=== PATIENT | female | born 1945 | race Caucasian/White ===

== ENCOUNTER 2017-03-30 12:25 | Emergency (ER) | payer MEDICARE, OTHER ==
[2017-03-30 12:33] VITALS: BP 121/80
[2017-03-30] MEDS ORDERED: HYDROcod/ACETAM 5/325 MG TABLET PO STA (12:41)
--- NOTE | 2017-03-30 12:45 | ED Physician Documentation ---
PD HPI UPPER EXT INJURY - Stated complaint Stated Complaint: R SHOULDER INJ - Chief complaint Chief Complaint: Ext Problem - History obtained from History obtained from: Patient - History of Present Illness Location: Right, Shoulder Type of injury: Other (Her shoulder was bothering her a little bit, across the back and the top of the shoulder radiating down the arm for a couple months. 3 days ago she had a minor fall while camping it all got much worse and now she is losing sleep because of the pain. She has not had trouble with that shoulder before that. But she does have known arthritis, she has had both hips replaced.) Review of Systems Constitutional: denies: Fever, Chills GI: denies: Abdominal Pain, Nausea, Vomiting PD PAST MEDICAL HISTORY - Past Medical History Past Medical History: Yes Endocrine/Autoimmune: Type 2 diabetes ("borderline") - Past Surgical History Past Surgical History: Yes Ortho: Hip replacement (bilateral) - Present Medications Home Medications: Ambulatory Orders Medication Instructions Recorded Confirmed HYDROcod/ACETAM 5/325 [Carson 5/325] 1 - 2 ea PO Q6H PRN #15 tablet 03/30/17 - Allergies Allergies/Adverse Reactions: Allergies Allergy/AdvReac Type Severity Reaction Status Date / Time No Known Drug Allergies Allergy Verified 03/30/17 12:33 PD ED PE NORMAL - Vitals Vital signs reviewed: Yes - General General: Alert and oriented X 3, No acute distress - Extremities Extremities: Other (Able to abduct to about 90 in the right shoulder. Mildly tender across the top and the glenohumeral joint without clavicular tenderness. She has pain with supraspinatus testing but is able to resist. Normal chefs strength, thumb extension, interossei strength, radial pulses, flexion and extension at the wrist on the right.) - Neuro Neuro: Alert and oriented X 3, Normal speech - Psych Psych: Normal mood, Normal affect Results - Vitals Vitals: Vital Signs - 24 hr 03/30/17 12:31 Temperature 36.1 C L Heart Rate 86 Respiratory 20 Rate Blood Pressure 121/80 O2 Saturation 98 Oxygen O2 Source Room air - Rads (name of study) R shoulder 3v Radiology: EMP read contemporaneously (Degenerative disease of the glenohumeral and AC joints without acute fracture.) PD MEDICAL DECISION MAKING - ED course ED course: She has acute on subacute right shoulder pain that seems muscular/arthritic. She is placed in a sling for comfort but advised on doing exercises several times a day to maintain range of motion. She is to continue the Aleve and we will add some hydrocodone and she is to follow-up with her orthopedist. Departure - Departure Disposition: 01 Home, Self Care Clinical Impression: Right shoulder pain Qualifiers: Chronicity: acute Qualified Code(s): M25.511 - Pain in right shoulder Condition: Good Record reviewed to determine appropriate education?: Yes Instructions: Arthritis Acromioclavicular Follow-Up: Nichole Richter MD [Provider Admit Priv/Credential] - Prescriptions: HYDROcod/ACETAM 5/325 [Carson 5/325] 1 - 2 ea PO Q6H PRN #15 tablet PRN Reason: Pain Comments: Call your doctor to arrange a follow-up appointment, make the next available appointment. In the interim, return anytime if worse or if new symptoms develop. Do not drink or drive while taking narcotic pain medication. Note that many narcotic pain relievers also contain Tylenol/acetaminophen. Please ensure that your total dose of acetaminophen from all sources does not exceed 3 g (3000 mg) per day. You may get constipated while on this medication. Take a stool softener such as Colace twice a day while you are on it. Also add an ehmg-amy-yqljunm laxative such as senna or MiraLAX on any day that you do not have a bowel movement. If you received a narcotic pain medication or sedative while in the emergency department, do not drive for the next 24 hours.
[2017-03-30] MEDS ORDERED: HYDROcod/ACETAM 5/325 MG TABLET ONE (13:02)
--- NOTE | 2017-03-30 13:18 | XRAY Preliminary Report ---
Exam: XR SHOULDER 3 VIEW RT IMPRESSION: 1. No definite acute abnormality. 2. Kfyd-kf-cyejzceu acromioclavicular and severe glenohumeral joint degenerative disease. [facility] SITE ID: [id number]
--- NOTE | 2017-03-30 13:20 | XRAY Report ---
EXAM: RIGHT SHOULDER RADIOGRAPHY EXAM DATE: 03/30/2017 12:59 PM. CLINICAL HISTORY: Shoulder inj. pain after fall 3 days ago. COMPARISON: None. TECHNIQUE: 3 views. FINDINGS: Bones: Normal. No fracture or bone lesion. Joints: The glenohumeral and acromioclavicular joints are normally aligned. Mild to moderate acromioc lavicular joint degenerative disease. Substantial glenohumeral joint degenerative disease with exuber ant humeral head inferior spurring. Soft tissues: The visualized hemithorax is unremarkable. No soft tissue swelling. IMPRESSION: 1. No definite acute abnormality. 2. Uiaa-[id number] acromioclavicular and severe glenohumeral joint degenerative disease. [facility] Referring Provider Line: [phone] SITE ID: [id number]
== END 2017-03-30 13:58 | disposition home or self-care (01) ==
LOC: ED 12:25
DX: M25.511 Pain in right shoulder (principal); W01.0XXA Fall on same level from slipping, tripping and stumbling without subsequent striking against object, initial encounter; Y92.833 Campsite as the place of occurrence of the external cause; E11.9 Type 2 diabetes mellitus without complications
CPT/HCPCS: 73030; 99282; 99283; A9270

== ENCOUNTER 2020-03-25 09:21 | Outpatient (CLI) | payer MEDICARE ==
--- NOTE | 2020-03-25 16:23 | Ultrasound Report ---
PROCEDURE: Abdomen Limited INDICATIONS: RUQ PAIN TECHNIQUE: Real-time focused scanning was performed of the abdomen, with image documentation. COMPARISON: None FINDINGS: The liver demonstrates prominent size. The liver demonstrates increased echogenicity, whic h limits ultrasound sensitivity for detection of masses. Focal fatty sparing can be seen adjacent to the gallbladder. Multiple are seen, including a 2.6 cm gallstone. The gallbladder wall does not appear thickened. Ther e is no specific pericholecystic fluid. The sonographic High's sign is negative. No biliary ductal dilatation is seen. The common bile duct measures 6 mm. The visualized pancreas is unremarkable. The visualized right kidney is within normal limits. IVC is patent. This study is limited by body habitus. The study is further limited by bowel gas. IMPRESSION: Gallstones can be seen within the gallbladder, without additional sonographic signs of cholecystitis. No biliary dilatation is seen. Fatty liver infiltration. Reviewed by: Cooper Magallanes MD on 03/25/2020 3:22 PM FROYLAN Approved by: Cooper Magallanes MD on 03/25/2020 3:22 PM FROYLAN Station ID: [id number]
== END 2020-03-25 09:22 | disposition home or self-care (01) ==
LOC: DI 09:21
PROVIDERS: ATTEND Internal Medicine
DX: R10.11 Right upper quadrant pain (principal); K80.20 Calculus of gallbladder without cholecystitis without obstruction; K76.0 Fatty (change of) liver, not elsewhere classified
CPT/HCPCS: 76705

== ENCOUNTER 2020-04-26 15:02 | Outpatient (CLI) | payer MEDICARE, OTHER | END 2020-04-26 15:03 | disposition home or self-care (01) | LOC: COV 15:02 | PROVIDERS: ATTEND Surgery | DX: Z01.812 Encounter for preprocedural laboratory examination (principal); K81.1 Chronic cholecystitis; Z20.828 Contact with and (suspected) exposure to other viral communicable diseases ==

== ENCOUNTER 2020-05-02 12:01 | Day surgery (SDC) | payer MEDICARE, OTHER ==
[~2020-05-02 12:01] MED LIST: CEFAZOLIN SODIUM IN 0.9 % NACL 2 GM/100 ML BAG IV ONE
[2020-05-02] MEDS ORDERED: LACTATED RINGERS 1,000 ML IV ONE (12:08)
[2020-05-02 12:20] VITALS: BP 168/91
--- NOTE | 2020-05-02 12:48 | ANESTHESIA ---
Pre-Anesthesia VS, & Labs - Diagnosis chronic cholecystitis - Procedure Lap Jessika Vital Signs: Temp Pulse Resp BP Pulse Ox 36.5 C 67 18 168/91 H 96 05/02/20 12:08 05/02/20 12:08 05/02/20 12:08 05/02/20 12:08 05/02/20 12:08 Height: 5 ft 6 in Weight (kg): 92.6 kg Body Mass Index: 32.9 BMI Classification: Obese - NPO >8 hours - Is Patient ?: No Home Medications and Allergies Home Medications: Ambulatory Orders Ascorbic Acid [Vitamin C] 500 mg PO DAILY 04/21/20 Cholecalciferol (Vitamin D3) [Vitamin D3] 3,000 unit PO DAILY 04/21/20 Lansoprazole [Prevacid] 15 mg PO DAILY 04/21/20 Levothyroxine [Synthroid] 100 mcg PO DAILY 04/21/20 Sertraline HCl [Zoloft] 100 mg PO DAILY 04/21/20 Simvastatin [Zocor] 20 mg PO DAILY 04/21/20 amLODIPine [Norvasc] 10 mg PO DAILY 04/21/20 Ascorbic Acid [Vitamin C] 500 mg PO DAILY 04/21/20 Cholecalciferol (Vitamin D3) [Vitamin D3] 3,000 unit PO DAILY 04/21/20 Lansoprazole [Prevacid] 15 mg PO DAILY 04/21/20 Levothyroxine [Synthroid] 100 mcg PO DAILY 04/21/20 Sertraline HCl [Zoloft] 100 mg PO DAILY 04/21/20 Simvastatin [Zocor] 20 mg PO DAILY 04/21/20 amLODIPine [Norvasc] 10 mg PO DAILY 04/21/20 Allergies/Adverse Reactions: Allergies Allergy/AdvReac Type Severity Reaction Status Date / Time No Known Drug Allergies Allergy Verified 03/30/17 12:33 Anes History & Medical History - Anesthetic History Anesthesia Complications: reports: No previous complications - Medical History Cardiovascular: reports: Hypertension, High cholesterol, Murmur (Patient has systolic murmur), Other (Patient reports dizziness when standing and neck pain that radiates to shoulders. Patient reports poor exercise tolerance.) Pulmonary: reports: Sleep apnea (snores) Gastrointestinal: reports: GERD (controlled with medication), Hiatal hernia Urinary: reports: None Neuro: reports: None Musculoskeletal: reports: Osteoarthritis Endocrine/Autoimmune: reports: HyPOthyroidism Blood Disorders: reports: None Skin: reports: None Smoking Status: Never smoker Psychosocial: reports: Depression, Anxiety - Surgical History General: Appendectomy Gynecologic: section, Hysterectomy Orthopedic: Hip replacement Results - EKG Results EKG Comparison: Reviewed EKG, Normal EKG Exam General: Alert, Oriented x3, Cooperative, No acute distress Dental: WNL Mouth Openin Fingerbreadth Neck Mobility: Normal Mallampati classification: II Thyromental Distance: less than 4 cm (2FB) Respiratory: Lungs clear, Normal breath sounds, No respiratory distress, No accessory muscle use Cardiovascular: Regular rate, Normal S1, Normal S2, Other (systolic murmur) Mental/Cognitive Status: Alert/Oriented X3, Normal for patient Plan Anesthesia Type: General (Recommend patient get a cardiac clearance prior to anesthesia due to murmur and symptoms of dizziness, neck pain radiating to shoulders.) Consent for Procedure(s) Verified and Reviewed: Yes Code Status: Attempt Resuscitation ASA classification: 2-Mild systemic disease Is this case an emergency?: No
== END 2020-05-02 12:02 | disposition home or self-care (01) ==
LOC: SDS 12:01
PROVIDERS: ATTEND Surgery
DX: K81.1 Chronic cholecystitis (principal); R01.1 Cardiac murmur, unspecified; R42 Dizziness and giddiness; M54.2 Cervicalgia; Z53.09 Procedure and treatment not carried out because of other contraindication
CPT/HCPCS: 93005

== ENCOUNTER 2020-06-09 07:00 | Outpatient (CLI) | payer MEDICARE, OTHER | END 2020-06-09 23:59 | disposition home or self-care (01) | LOC: COV 07:00 | PROVIDERS: ATTEND Surgery | DX: Z01.812 Encounter for preprocedural laboratory examination (principal); K81.1 Chronic cholecystitis; Z20.822 Contact with and (suspected) exposure to COVID-19 ==

== ENCOUNTER 2020-06-13 09:57 | Day surgery (SDC) | payer MEDICARE, OTHER ==
[~2020-06-13 09:57] MED LIST changes: -CEFAZOLIN SODIUM IN 0.9 % NACL 2 GM/100 ML BAG IV ONE; +ceFAZolin 2 GM/50 ML 2 GM/50 ML BAG IV ONE
[2020-06-13] MEDS ORDERED: LACTATED RINGERS 1,000 ML IV ONE ×3 (10:05→16:00)
[2020-06-13] MEDS ORDERED: BUPIVACAINE 0.25% PF 30 ML VIAL ONE (10:19)
[2020-06-13] MEDS ORDERED: MIDAZOLAM 2 MG/2 ML VIAL ONE (10:40)
[2020-06-13] MEDS ORDERED: fentaNYL 100 MCG/2 ML VIAL ONE (10:40)
[2020-06-13] MEDS ORDERED: PROPOFOL 200 MG/20 ML VIAL IVP ONE (10:41)
[2020-06-13] MEDS ORDERED: LIDOCAINE-MPF 2% 5 ML VIAL ONE (10:41)
[2020-06-13] MEDS ORDERED: ROCURONIUM 50 MG/5 ML VIAL ONE ×2 (10:42→14:30)
[2020-06-13] MEDS ORDERED: ePHEDrine 50 MG/ML VIAL IVP ONE ×2 (11:08→13:23)
[2020-06-13] MEDS ORDERED: SODIUM CHLORIDE 0.9% 10 ML ONE (11:08)
[2020-06-13] MEDS ORDERED: fentaNYL 100 MCG/2 ML VIAL IVP PRN (11:37)
[2020-06-13] MEDS ORDERED: ONDANSETRON 4 MG/2 ML VIAL IVP PRN ×2 (11:37→15:00)
[2020-06-13] MEDS ORDERED: MORPHINE 2 MG/ML CARPUJECT IVP PRN (11:37)
[2020-06-13] MEDS ORDERED: ATROPINE ABBOJECT 1 MG/10 ML SYRINGE IVP PRN (11:37)
[2020-06-13] MEDS ORDERED: HYDROmorphone 0.5 MG/0.5 ML SYRINGE IVP PRN (11:37)
[2020-06-13] MEDS ORDERED: NALOXONE 0.4 MG/ML VIAL IVP PRN (11:37)
[2020-06-13] MEDS ORDERED: METOCLOPRAMIDE 10 MG/2 ML VIAL IVP PRN (11:37)
[2020-06-13] MEDS ORDERED: ePHEDrine 50 MG/ML VIAL IVP PRN (11:37)
--- NOTE | 2020-06-13 11:37 | ANESTHESIA ---
Pre-Anesthesia VS, & Labs - Diagnosis cholecystitis - Procedure laparoscopic cholecystectomy Vital Signs: Temp Pulse Resp BP Pulse Ox 36.7 C 78 18 146/84 H 97 06/13/20 10:09 06/13/20 10:09 06/13/20 10:09 06/13/20 10:09 06/13/20 10:09 Height: 5 ft 6 in Weight (kg): 92.3 kg Body Mass Index: 32.8 BMI Classification: Obese - NPO >8 hours - Is Patient ?: No - Lab Results Lab results reviewed: Yes Home Medications and Allergies Ascorbic Acid [Vitamin C] 500 mg PO DAILY 04/21/20 Cholecalciferol (Vitamin D3) [Vitamin D3] 3,000 unit PO DAILY 04/21/20 Lansoprazole [Prevacid] 15 mg PO DAILY 04/21/20 Levothyroxine [Synthroid] 100 mcg PO DAILY 04/21/20 Sertraline HCl [Zoloft] 100 mg PO DAILY 04/21/20 Simvastatin [Zocor] 20 mg PO DAILY 04/21/20 amLODIPine [Norvasc] 10 mg PO DAILY 04/21/20 Allergies/Adverse Reactions: Allergies Allergy/AdvReac Type Severity Reaction Status Date / Time No Known Drug Allergies Allergy Verified 03/30/17 12:33 Anes History & Medical History - Anesthetic History Anesthesia Complications: reports: No previous complications Family history of Anesthesia Complications: Denies Family history of Malignant Hyperthermia: Denies - Medical History Cardiovascular: reports: Hypertension, High cholesterol, Murmur, Arrhythmia Pulmonary: reports: Sleep apnea Gastrointestinal: reports: GERD, Hiatal hernia Urinary: reports: None Neuro: reports: None, Other (neck pain with radiculopathy) Musculoskeletal: reports: Osteoarthritis Endocrine/Autoimmune: reports: HyPOthyroidism Blood Disorders: reports: None Skin: reports: None Smoking Status: Never smoker - Surgical History General: Appendectomy Gynecologic: section, Hysterectomy Orthopedic: Hip replacement Results - EKG Results EKG Comparison: Reviewed EKG, Normal EKG - Echo Results Echo Results: Report reviewed Exam General: Alert, Oriented x3, Cooperative, No acute distress Dental: WNL Mouth Openin Fingerbreadth Neck Mobility: Reduced Mallampati classification: II Respiratory: Lungs clear, Normal breath sounds, No respiratory distress, No accessory muscle use Cardiovascular: Regular rate Plan Anesthesia Type: General Consent for Procedure(s) Verified and Reviewed: Yes Code Status: Attempt Resuscitation ASA classification: 3-Severe systemic disease Is this case an emergency?: No
[2020-06-13] MEDS ORDERED: ACETAMINOPHEN 1,000 MG/100 ML 0 ML IV ONE (12:00)
[2020-06-13] MEDS ORDERED: LACTATED RINGERS 1,000 ML IV SCH (12:00)
[2020-06-13] MEDS ORDERED: BUPIVACAINE 0.25% PF 30 ML VIAL SUBQ ONE ×2 (13:29→14:50)
[2020-06-13] MEDS ORDERED: ACETAMINOPHEN 1,000 MG/100 ML 100 ML IV ONE (13:31)
[2020-06-13] MEDS ORDERED: GLYCOPYRROLATE 1 MG/5 ML VIAL ONE (13:34)
[2020-06-13] MEDS ORDERED: NEOSTIGMINE 1 MG/1 ML 10 ML MDV ONE (14:18)
[2020-06-13] MEDS ORDERED: ONDANSETRON ODT 4 MG TABLET TL PRN (15:03)
--- NOTE | 2020-06-13 15:05 | OPERATIVE REPORT ---
Operative Report - General Procedure Date: 06/13/20 Planned Procedure: lap rito Pre-Op Diagnosis: chronic cholecystitis Procedure Performed: lap rito Post Op Diagnosis: chronic cholecystitis - Procedure Note Anesthesia Technique: General ET tube, Local Estimated Blood Loss (mL): 25 Indications: chronic cholecystitis Findings: extra difficult. gallbladder adherent to hepatic artery and very short posterior cystic artery
--- NOTE | 2020-06-13 15:42 | ANESTHESIA POST OP EVALUATION ---
Anesthesia Post Eval - Post Anesthesia Eval Vitals: Last Vital Signs Temp 36.9 C 06/13/20 15:25 Pulse 61 06/13/20 15:40 Resp 18 06/13/20 15:40 BP 133/77 H 06/13/20 15:40 Pulse Ox 92 06/13/20 15:40 CV Function Including HR & BP: positive: Stable Pain Control: positive: Satisfactory Nausea & Vomiting: positive: Negative Mental Status: positive: Baseline Respiratory Status: Airway Patent Hydration Status: Satisfactory Anesthesia Complications: positive: None
[2020-06-13] MEDS ORDERED: HYDROmorphone 0.5 MG/0.5 ML SYRINGE ONE (16:00)
[2020-06-13] MEDS: HYDROcod/ACETAM 5/325 MG TABLET PO PRN ×2 (17:29→19:36)
[2020-06-14] MEDS: HYDROcod/ACETAM 5/325 MG TABLET PO PRN ×2 (00:38→08:44)
--- NOTE | 2020-06-14 01:57 | OPERATIVE REPORT ---
DATE OF SERVICE: 06/13/2020 Physician: Mic Willingham MD PREOPERATIVE DIAGNOSIS: Chronic cholecystitis. POSTOPERATIVE DIAGNOSIS: Chronic cholecystitis. PROCEDURE PERFORMED 1. Laparoscopic cholecystectomy. 2. Extra degree of difficulty secondary to tremendous inflammation, with gallbladder adherent to the hepatic artery. SURGEON: Mic Willingham MD CLOTH WEAVER: None. ANESTHESIA 1. General endotracheal anesthesia. 2. Local anesthesia with Marcaine. COMPLICATIONS: None. SPECIMEN: Gallbladder. ESTIMATED BLOOD LOSS: Less than 25 mL. DRAINS: None. FINDINGS: As above, very significant inflammation of the gallbladder, especially at the infundibulum , with scarring of the gallbladder to the hepatic artery. A very short, posterior cystic artery was present. The common bile duct was evident, without dissection. She had a fatty liver with mild nodu larity. INDICATIONS FOR PROCEDURE: The patient is a 75-year-old with chronic cholecystitis-type symptoms. S he has not had signs or symptoms of choledocholithiasis. She presents for a cholecystectomy. Risks discussed, alternatives discussed. All questions answered and consent obtained. DETAILS OF THE PROCEDURE: The patient was properly identified, brought to the operating room and charan chapis in the supine position. General endotracheal anesthesia was induced. Sequential compression dev ices were placed. She was prepped and draped in a sterile fashion, and given preoperative antibiotic s. Local anesthetic was given to incision areas. She had a prior low midline incision and she has a diastasis. A 3.5 cm incision was made approximately 4 cm cephalad of the umbilicus and 4 cm right l ateral. Dissection proceeded down to the fascia. The fascia was incised, lifted upwards and the abd omen entered with a Veress needle. CO2 was insufflated to a pressure of 15. An 11 mm trocar with a 30-degree scope was then placed under vision. There was no evidence of injury from Veress needle or trocar placement. Under direct vision, two 5 mm trocars were placed in the right upper quadrant and an 11 mm trocar was placed in the epigastrium. She had adherent omentum to all but the very top or f undus of her gallbladder. The fundus of the gallbladder was retracted anterior. Adherent omentum wa s carefully taken down. Lateral attachments were partially taken down, further mobilizing the gallbl adder more anterior. The infundibulum was then retracted right lateral and caudad. She had a very l deshaun anterior cystic artery. This was clipped at the gallbladder and twice more slightly proximal, an d sharply divided. The cystic artery was further peeled away from the gallbladder in cystic duct are a. The anatomy did not appear easily evident or normal. Given this, a very large, bare cystic plate area or window was carefully created. It was discovered her fundus of the gallbladder was adherent to the hepatic artery and a very short, posterior cystic artery was present. The cystic duct was ins pected, right lateral and left lateral. The hepatic duct was then identified. Once the anatomy was certain, given the very thorough and careful dissection, the cystic duct was clipped at the gallbladd er 3 times more, slightly proximal and sharply divided. The very short posterior cystic artery comin g off the right hepatic artery was then clipped at the gallbladder 2 more times proximal and sharply divided. The gallbladder was mobilized off from the bed of the liver without spillage of bile or sto ne material. The gallbladder was placed in an Endo Catch bag and brought out through the epigastrium . She did have a fatty liver and there was slight venous ooze from the liver bed area. Surgicel was placed. A small amount of blood was aspirated. Hemostasis was ensured. Trocars were removed under direct vision and CO2 evacuated, after fascia at the 10 mm trocar sites was closed with [id number] ght 0 Vicryl. She tolerated the procedure well. Skin was closed with buried interrupted and running 4-0 Monocryl. Dressings were applied. She was awakened and brought to Recovery in good condition. TD: 06/13/2020 20:25
[2020-06-14] MEDS ORDERED: PANTOPRAZOLE 40 MG TABLET PO SCH (07:00)
[2020-06-14] MEDS ORDERED: LEVOTHYROXINE 100 MCG TABLET PO SCH (07:00)
[2020-06-14 08:29] VITALS: BP 143/84
[2020-06-14] MEDS ORDERED: amLODIPine 5 MG TABLET PO SCH (09:00)
[2020-06-14] MEDS ORDERED: SERTRALINE 50 MG TABLET PO SCH (09:00)
[2020-06-14] MEDS ORDERED: ATORVASTATIN 10 MG TABLET PO SCH (21:00)
== END 2020-06-14 08:55 | disposition home or self-care (01) ==
LOC: SDS 09:57 → ICU 16:10 → SDS 06-14 08:55
PROVIDERS: ATTEND Surgery
PROC: 0FT44ZZ Resection of Gallbladder, Percutaneous Endoscopic Approach (ICD-10-PCS; principal; 2020-06-13 11:00)
DX: K80.10 Calculus of gallbladder with chronic cholecystitis without obstruction (principal); K76.0 Fatty (change of) liver, not elsewhere classified; E66.9 Obesity, unspecified; Z68.32 Body mass index [BMI] 32.0-32.9, adult; I10 Essential (primary) hypertension; G47.30 Sleep apnea, unspecified; K21.9 Gastro-esophageal reflux disease without esophagitis
CPT/HCPCS: 47562; A9270; J0131; J0690; J1170; J7120